=== PATIENT | female | born 2000 | race Two or more races ===

== ENCOUNTER 2024-09-03 12:31 | Observation (INO) | payer BC, MEDICAID, SELFPAY ==
[2024-09-03 12:39] VITALS: BMI 35.3
[2024-09-03 12:51] VITALS: BP 117/69; PULSE 100
== END 2024-09-03 13:28 | disposition home or self-care (01) ==
PROVIDERS: Admitting Provider Student in an Organized Health Care Education/Training Program; PCP Family Medicine; Visit Provider Student in an Organized Health Care Education/Training Program
DX: O47.03 False labor before 37 completed weeks of gestation, third trimester (principal); Z3A.35 35 weeks gestation of pregnancy
CPT/HCPCS: 59025; 59899

== ENCOUNTER 2024-09-12 16:07 | Observation (INO) | payer BC, MEDICAID, SELFPAY ==
[2024-09-12 16:09] VITALS: BMI 36.3
[2024-09-12 16:13] VITALS: BP 124/85; PULSE 115
[2024-09-12] MEDS: hydrOXYzine HCL 25 MG TABLET PO (16:45)
== END 2024-09-12 16:55 | disposition home or self-care (01) ==
PROVIDERS: Admitting Provider Obstetrics & Gynecology; Visit Provider Obstetrics & Gynecology
DX: O47.03 False labor before 37 completed weeks of gestation, third trimester (principal); Z3A.36 36 weeks gestation of pregnancy
CPT/HCPCS: 59025; 59899; A9270

== ENCOUNTER 2024-09-17 21:10 | Observation (INO) | payer BC, MEDICAID, SELFPAY ==
[2024-09-17 21:23] VITALS: BP 99/64; PULSE 110
[2024-09-17 21:27] VITALS: BMI 37.0
--- NOTE | 2024-09-17 21:47 | XR_ITS ---
Examination: Complete OB ultrasound greater than 14 weeks Date and time of exam: September 17, 2024 1113 hrs. Indications: Pelvic contractions beginning 3 weeks ago Findings: Viable intrauterine single fetus with single amniotic sac presentation cephalic Cardiac motion 160 BPM Placenta anterior grade 3 Umbilical cord insertion seen Amniotic fluid index 14.5 cm Ovaries obscured by bowel gas. Composite estimated gestational age based on BPD, head circumference, abdominal circumference, femur length is 37 weeks 0 days Estimated weight 3098.9 g. Survey of intracranial anatomy, spinal anatomy, abdominal anatomy, four-chamber heart performed with no abnormalities identified. Impression: Viable intrauterine gestation cephalic presentation.
--- NOTE | 2024-09-17 21:47 | XR_ITS ---
Examination: Biophysical profile, ultrasound Date and time of exam: September 17, 2024 1130 hrs. Indications: Pelvic contractions beginning 3 weeks ago Technique: Multiple transabdominal sonographic images of the pelvis abdomen obtained. Attention is directed to the breathing movement, gross body movement, amniotic fluid volume and tone. Findings: Amniotic fluid index 13.8 cm Total biophysical profile is 8 of 8. breathing movement is 2. Gross body movement is 2. tone is 2. Qualitative amniotic fluid volume is 2 Impression: Biophysical profile is 8 of 8.
[2024-09-17 23:45] VITALS: BP 130/77; PULSE 96
[2024-09-18 00:53] VITALS: BP 119/80; PULSE 86
--- NOTE | 2024-09-18 01:12 | PRELIM_ITS ---
Obstetric ultrasound (limited) with Doppler. September 17, 2024 2330 hoursClinical history: HX: SAB, u nable to determine presentationComparison: None.Findings:There is a gravid uterus with a live fetus. cardiac activity is present at a heart rate of 141 beats per minute. The placenta is anterior in location. There is no evidence of placenta previa or retroplacental hemorrhage. Amniotic fluid is adequate (ARUN = 13.8 cm). No abnormalities by Doppler.Biophysical Profile:Breathing : 2Tone : 2Amni otic fluid : 2Movement : 2BPP Score: 8/8Impression:Gravid uterus with a single live fetus.Normal feta l biophysical profile as recorded by the ct mri technologist. Report Electronically Signed By: Cleo Wyatt 09/18/2024 1:12:23 AM [EST]
--- NOTE | 2024-09-18 01:24 | PRELIM_ITS ---
Obstetric ultrasound with Doppler. September 17, 2024 2313 hours Clinical history: HX: SAB, Unable to determine presentation Comparison: None.Findings:There is a gravid uterus with a live fetus in cephal ic presentation of mean gestational age 37 weeks and 0 day (by biometry). cardiac activit y is present at a heart rate of 160 beats per minute. The placenta is anterior in location, maturity grade 3. There is no evidence of placenta previa or retroplacental hemorrhage. Amniotic fluid is adeq uate (ARUN = 14.5 cm). Estimated weight is 3099 grams+/- 459 grams. No abnormalities detected by Doppler.Impression:Gravid uterus with a single live fetus in cephalic presentation of mean gestation al age 37 weeks 0 day. Report Electronically Signed By: Christopher Wyatt 09/18/2024 1:23:29 AM [EST]
[2024-09-18 01:35] VITALS: BP 132/79; PULSE 102
== END 2024-09-18 02:10 | disposition home or self-care (01) ==
PROVIDERS: Admitting Provider Obstetrics & Gynecology; Visit Provider Obstetrics & Gynecology
DX: O47.1 False labor at or after 37 completed weeks of gestation (principal); Z3A.37 37 weeks gestation of pregnancy
CPT/HCPCS: 59025; 59899; 76805; 76819

== ENCOUNTER 2024-09-18 03:27 | Inpatient (IN) | payer BC, MEDICAID, SELFPAY ==
[2024-09-18] VITALS (14 sets, daily range): BP systolic 109–146; BP diastolic 72–92; PULSE 80–126; RESP 16–18; TEMP 36.7–36.8; O2SAT 97–100
[2024-09-18] MEDS: RINGERS LACTATED 1000 ML 1,000 ML 100 ML IV (04:02)
[2024-09-18] MEDS: Ampicillin Inj 2,000 MG in SODIUM CHLORIDE 0.9% (P) 100 ML 200 MG IV (04:02)
[2024-09-18] MEDS: OXYTOCIN INJ 10 UNIT/ML VIAL IM (04:15)
[2024-09-18] MEDS: OXYTOCIN in NS 20 units 20 UNIT/1,000 ML BAG 125 UNIT IV (04:15)
[2024-09-18] MEDS: fentaNYL CIT INJ 50 mCg/ML AMP 2ML 100 MCG IV (04:16)
[2024-09-18] MEDS: LIDOCAINE HCL 1% 20 ML VIAL INFL (04:26)
--- NOTE | 2024-09-18 04:29 | PD.EDADDENDU ---
Emergency Room Addendum Addendum Narrative: Note 0400: Called to OB floor for impending delivery. OB provider and route. 23 yo Full term DATE OF DELIVERY: 09/18/2024 0407: Spontaneous delivery of intact placenta, 3 vessel cord. Baby delivered after 1 push by the mother. Bulb suction of mouth and nose @delivery. Cord removed from around neck. Delivered onto mom?s abdomen. The cord was clamped x2 and cut. Baby was handed to the nurse. See nurses notes for Apgars score were -, -, -. (please see nurses notes).Negative meconium. 0412: Placenta delivered spontaneously intact with 3-vessel cord . Estimated blood loss of 350 mL. Pitocin IM per nursing staff. TYPE OF DELIVERY: Normal spontaneous vaginal delivery of viable male. Infant given O2 with minimal retractions, taken to NICU, Dr. Pizarro made aware.
--- NOTE | 2024-09-18 04:56 | ESHP_ITS ---
Documentation for date of: 09/18/24 OB Labor/Induct. HPI History of Present Illness Chief complaint: labor : 9 Para: 2 Term pregnancies: 2 pregnancies: 0 Living children: 2 History of Abortions: Spontaneous and Elective: 6 History of Vaginal deliveries: 2 History of sections: No History of : No Date of last menstrual period: 01/02/24 TREY: 10/07/24 Gestational Age (weeks): 37 Gestational Age (days): 2 Gestational age based on last menstrual period: 37 History of present illness: This is a 23-year-old 9 para 2 admit to labor and delivery for complaints of labor since 3 in the morning. Patient followed at [facility] for care. First visit was at 4 weeks. 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 And she was treated with vaginal progesterone for the first 3 months of her . Last period January 01, 2000 224. Estimated due date October 07, 2024. Patient has a history of marijuana use with the . She has a history of asthma she uses an inhaler and she also has a pressure history of PTSD anxiety and depression. She has had no surgeries. She is B+, antibody screen negative, RPR nonreactive, rubella immune, hepatitis B-, HIV negative, hep C negative, 1 hour GTT was not done and GBS was not done. History of Present Dating criteria: LMP confirmed by 1st trimester US Adequate Care: Yes Ultrasounds: normal 1st trimester US and normal mid trimester US Obstetrical complications: other (frequent SAB) Medical complications: respiratory (asthma, MDI) Review of Systems Review of Systems Systems Reviewed: All systems reviewed, normal except as documented Past Medical History Surgical History SURGICAL: Negative Section Meds Home Medications and Allergies Home Medications ?Medication ?Instructions ?Recorded ?Confirmed ?Type vitamin no.[id number] 1 cap PO QDAY 07/07/24 09/18/24 History 27 mg iron-1 mg-200 mg capsule Allergies Allergy/AdvReac Type Severity Reaction Status Date / Time No Known Allergies Allergy Verified 09/18/24 03:52 OB Exam Physical Exam Vital signs: Pulse Resp BP Pulse Ox 112 H 18 126/79 100 09/18/24 04:54 09/18/24 03:43 09/18/24 04:54 09/18/24 03:43 Narrative: Alert and oriented. Normal heart rate and rhythm. Lungs are clear. Gravid abdomen. Gynecoid pelvis. Estimated weight 6 pounds. Vaginal exam on admission was 80%, 4. -2. Vertex. heart rate category 1 with accelerations and moderate variability bag water was intact Detailed Labor and Delivery Exam Dilation (cm): 4-5 Effacement (%): 80 Cervix position: mid station: -2 Consistency: soft Presentation: Vertex Cervical ripeness score: 8 Membranes: intact Baseline heart rate: 125 monitor accelerations: 15x15 monitor decelerations: None prison variability: Moderate (11-25) Contraction frequency (min): 3-4 Contraction duration (sec): 30 Tachysystole: No Contraction intensity: Moderate OB Results Impressions Impression: labor OB Assessment & Plan Additional Plan Induction method: none Plan: anticipate NVD, GBS prophylaxis tx and consult MD montgomery
--- NOTE | 2024-09-18 05:13 | PD.LDDELS ---
Data (Mcdonald) Data Hx Section: No Para: 1 Delivery Data (Mcdonald) Labor Data Stimulated/Augmented: No Induction: No ROM Date: 09/18/24 ROM Time: 03:45 Rupture Type: SROM Amniotic Fluid: Clear Delivery Data EDC: 10/07/24 EDC calculated by:: LMP/early US confirmation Labor Onset Stage 1 Date: 09/18/24 Labor Onset Stage 1 Time: 03:27 Labor Onset Stage 2 Date: 09/18/24 Labor Onset Stage 2 Time: 04:07 Delivery Date: 09/18/24 Delivery Time: 04:07 Gestational age (weeks): 37 Gestational age (days): 2 Placenta Delivery Date: 09/18/24 Placenta Delivery Time: 04:12 Delivered by: Obix, Delivery nurse: Soumya Gutierrez Other staff at delivery: Nursery Nurse Other staff at delivery: RT Other staff at delivery: Joanne Jon Other staff at delivery: nany RT Delivery Method Delivery: Vaginal Delivery Type: Spontaneous (ER MD in attendance for precipt delivery) Presentation: Vertex Position: OA Anesthesia Type Primary Anesthesia: None Delivery Room Medications Intrapartum Medications: Antibiotics Other Intrapartum Medications: No Post Delivery Medications: Narcotics and Tocolytics Placenta Placenta Delivery: Spontaneous (placenta delivered intact) Placenta Cultures Obtained: No Placenta Sent for Examination: No Episiotomy Episiotomy: None Lacerations #1: Perineal: 1st degree Perineal repair Sutures used for repair: 3.0 Chromic EBL Estimated blood loss (ml): 300 Umbilical Cord Umbilical Vessels: 3 Nuchal Cord: x1 Body Cord: Not Applicable Data (Mcdonald) [place] Data Infant Gender: Male Infant Weight Grams: 2790 1 Minute Total: 7 5 Minute Total: 8 10 Minute Total: 8
[2024-09-18 05:30] LABS: Basophils # (Auto) 0.1 Thou/mm3 (0.0-0.2); Basophils % (Auto) 0 % (0-2.5); Eosinophils # (Auto) 0.1 Thou/mm3 (0.0-0.5); Eosinophils % (Auto) 1 % (0-10); Hematocrit 34.8 % (36.0-46.0); Hemoglobin 11.7 g/dL (12.0-16.0); Immature Granulocytes % (Auto) 1 % (0-0); Lymphocytes % (Auto) 22 % (10-50); Mean Corpuscular HGB Conc 33.6 g/dl (31.0-37.0); Mean Corpuscular Volume 80 fL (80-100); Monocytes % (Auto) 6 % (0-12); Neutrophils # (Auto) 12.5 Thou/mm3 (1.8-7.7); Neutrophils % (Auto) 71 % (37-80); Nucleated Red Blood Cell % 0 /100 WBC (0); Platelet Count 346 Thou/mm3 (140-440); RDW Standard Deviation 40.8 fL (36.4-46.3); Red Blood Count 4.34 Miln/mm3 (4.00-5.20); White Blood Count 17.7 Thou/mm3 (3.6-11.0)
[2024-09-18 06:18] LABS: Syphilis Nonreactive (Nonreactive)
[2024-09-18] MEDS: DOCUSATE SOD 100 MG CAPSULE PO ×2 (08:00→20:50)
[2024-09-18 09:54] LABS: Amphetamine/Metham Scrn,Ur OB Negative (Negative); Benzoylecgonine Screen, Ur OB Negative (Negative); Opiate Screen,Urine OB Negative (Negative); THC Screen,Urine OB Negative (Negative)
--- NOTE | 2024-09-18 10:01 | PC.SS ---
POLICE LIEUTENANT PATROL conducted bedside contact with the patient to address nursing referral indicating patient possessed history of anxiety, depression and PTSD. POLICE LIEUTENANT PATROL introduced self, role and basis of contact. Patient confirmed history of mood disorder. Patient informed POLICE LIEUTENANT PATROL currently participating with individual counseling. Patient is not prescribed psychotropic medication. Mood disorder not impairing with daily functioning. Patient denies history of psychotropic medication. Patient denies engaging in self-harm behaviors. Patient denies current intent/plan of SI/HI. , Anthony; is the patient?s third child. Ages of other children are 2 and 1.5 years old. Patient resides with [facility], Franko Vyas; and children. Patient denies history of alcohol and drugs. Patient denies history of CWS intervention. Patient is aligned with WIC, SNAP and TANF. Miller delivered naturally. Dr. Stubbs was OB. Patient states consistency with OB appointments. Patient plans on . Patient has access to appropriate supplies and equipment. FOB will provide transportation upon discharge. Patient describes possessing support system consisting of spouse and extended family. POLICE LIEUTENANT PATROL provided patient with information to community resources. No further intervention required at this time, social media strategist will be available to address any further concerns. POL[employer] LIEUT[employer]NT PATROL updated bedside nurse.
[2024-09-18 12:37] LABS: Basophils % (Auto) 0 % (0-2.5); Eosinophils % (Auto) 0 % (0-10); Hematocrit 32.1 % (36.0-46.0); Hemoglobin 10.5 g/dL (12.0-16.0); Immature Granulocytes % (Auto) 1 % (0-0); Immature Granulocytes Auto 0.11 Thou/mm3 (0.00-0.00); Lymphocytes # (Auto) 2.9 Thou/mm3 (1.0-4.8); Lymphocytes % (Auto) 14 % (10-50); Mean Corpuscular HGB Conc 32.7 g/dl (31.0-37.0); Mean Corpuscular Hemoglobin 26.4 pg (25.0-35.0); Mean Corpuscular Volume 81 fL (80-100); Monocytes # (Auto) 0.6 Thou/mm3 (0.0-0.8); Monocytes % (Auto) 3 % (0-12); Neutrophils # (Auto) 16.3 Thou/mm3 (1.8-7.7); Neutrophils % (Auto) 82 % (37-80); Nucleated Red Blood Cell % 0 /100 WBC (0); Platelet Count 310 Thou/mm3 (140-440); RDW Standard Deviation 40.3 fL (36.4-46.3); Red Blood Count 3.97 Miln/mm3 (4.00-5.20); White Blood Count 19.9 Thou/mm3 (3.6-11.0)
[2024-09-18] MEDS: IBUPROFEN TAB 400 MG TABLET 800 MG PO ×2 (14:08→23:58)
[2024-09-18] MEDS: ACETAMINOPHEN 325 MG TABLET 650 MG PO (20:49)
[2024-09-19 00:30] VITALS: BP 115/75; PULSE 90; RESP 16; TEMP 36.7; O2SAT 99
[2024-09-19] MEDS: ACETAMINOPHEN 325 MG TABLET 650 MG PO (04:16)
[2024-09-19] MEDS: HYDROcodone/APAP 5/325 TABLET 1 TAB PO (05:13)
[2024-09-19 08:15] VITALS: BP 113/77; PULSE 94; RESP 16; TEMP 36.6; O2SAT 96
[2024-09-19] MEDS: DOCUSATE SOD 100 MG CAPSULE PO (08:41)
--- NOTE | 2024-09-19 09:34 | PD.LDPPPRG ---
Subjective Subjective Interval history: No complaints of pain. No dizziness. Bonding. Breast-feeding Exam Vital Signs Temp Pulse Resp BP Pulse Ox O2 Del Method 98.1 F 90 16 115/75 99 Room Air 09/19/24 00:30 09/19/24 00:30 09/19/24 00:30 09/19/24 00:30 09/19/24 00:30 09/19/24 00:30 Narrative Exam Vital signs stable afebrile. Breasts are soft. Fundus firm below the umbilicus. Perineum intact no swelling. Small lochia. Uterus well involuted. negative homans, no phlebitis,no redness Objective Labs 09/18/24 12:02 Labs: Laboratory Results - last 24 hr 09/18/24 09/18/24 09:24 12:02 WBC 19.9 H RBC 3.97 L Hgb 10.5 L Hct 32.1 L MCV 81 MCH 26.4 MCHC 32.7 RDW Std Deviation 40.3 Plt Count 310 D Neut % (Auto) 82 H Lymph % (Auto) 14 [place] % (Auto) 3 Eos % (Auto) 0 Baso % (Auto) 0 Neut # (Auto) 16.3 H Lymph # (Auto) 2.9 [place] # (Auto) 0.6 Eos # (Auto) 0.0 Baso # (Auto) 0.0 Immature Gran # (Auto) 0.11 H Absolute Nucleated RBC 0.00 Immature Gran % 1 H Nucleated RBC % 0 Urine Opiates Screen Negative U Amphetamin/Meth Scrn Negative U Cocaine Metab Screen Negative U Marijuana (THC) Screen Negative Assessment & Plan Assessment Comment Assessment comment: 24 hr pp Plan Comment Plan Comment: Discharge home with baby. Continue vitamins and iron. Tylenol ibuprofen for pain. Danger signs. Return in 3 weeks visit. Discussed comfort measures for small first-degree laceration. Discussed ER precautions and parameters. Discussed signs symptoms of infection. Time Spent With Patient Time: Total time spent is greater than 50% in coordination of care (as documented) at patient's floor/unit and/or counseling patient:
--- NOTE | 2024-09-19 09:36 | PD.LDDS ---
DS: Providers Provider Date of admission: 09/18/24 03:43 Primary care physician: Rory Altamirano MD Admitting Provider: Rory Altamirano MD Attending Provider on Admission: Rory Altamirano MD Consults: 09/18/24 05:43 Referral Routine Comment: Attending Provider on DC: Kira Barrios CNM Discharging Provider: Kira Barrios CNM DS: Diagnosis Problem List Completed Was Problem List Reviewed/Reconciled?: Yes Summary/Hosp Course Brief History: This is a 23-year-old 9 para 2 admit to labor and delivery for complaints of labor since 3 in the morning. Patient followed at [facility] for care. First visit was at 4 weeks. 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 And she was treated with vaginal progesterone for the first 3 months of her . Last period January 01, 2000 224. Estimated due date October 07, 2024. Patient has a history of marijuana use with the . She has a history of asthma she uses an inhaler and she also has a pressure history of PTSD anxiety and depression. She has had no surgeries. She is B+, antibody screen negative, RPR nonreactive, rubella immune, hepatitis B-, HIV negative, hep C negative, 1 hour GTT was not done and GBS was not done. Peripartum Data Delivery Method: Normal Vaginal Delivery Episiotomy Description: None Laceration Description: yes (small 1st perineal) Time Spent with Patient Time attestation: Total time spent providing and/or coordinating discharge services: Exam Vital Signs Temp Pulse Resp BP Pulse Ox O2 Del Method 98.1 F 90 16 115/75 99 Room Air 09/19/24 00:30 09/19/24 00:30 09/19/24 00:30 09/19/24 00:30 09/19/24 00:30 09/19/24 00:30 Discharge Plan Plan Patient Disposition: HOME (Self Care) Patient condition on transfer: Stable Prescriptions/Referrals Prescriptions/Med Rec: No Action vit #[id number]-[id number]-dha 27 mg iron-1 mg-200 mg Capsule 1 cap PO QDAY Referrals: Rory Altamirano MD [Primary Care Provider] - Patient/Caregiver Discharge Instructions Meds to Beds: No Discharge Activity: resume usual activities Education Materials: After a Vaginal , Understanding Blues, Nutrition While Print Language: Qatari Activity Restrictions/Additional Instructions: Follow up with OB in 4 weeks for check up. Discharge home with baby. Continue vitamins and iron. Tylenol Tylenol or ibuprofen for pain. Discussed ER precautions and parameters. Discussed danger symptoms and signs and symptoms of infection. Discussed comfort measures for first-degree perineal tear Stand Alone Forms: Nieves Award Info., Patient Portal Info Letter Discharge Order Discharge Orders: Discharge (Routine); Ordered 09/19/24 Ordered By: Kira Barrios Planned Discharge Date 09/19/24
--- NOTE | 2024-09-19 11:35 | PC.LAC ---
Mom stated that she was doing well with and has previous experience. States nursed her previous children up to one year. Is not having any pain on latch and did do skin to skin. Does not need help at this time.
== END 2024-09-19 11:08 | disposition home or self-care (01) | DRG 807 ==
LOC: S4SX 04:24 → S4NX 06:29 → S4SX 09-19 05:11 → S4NX 09-19 07:29 → S4SX 10-12 08:32 → S4NX 10-12 08:32
PROVIDERS: Advanced Practice Midwife; Admitting Provider Obstetrics & Gynecology; PCP Obstetrics & Gynecology; Visit Provider Obstetrics & Gynecology
DX: O99.52 Diseases of the respiratory system complicating childbirth (principal); Z37.0 Single live birth; O99.344 Other mental disorders complicating childbirth; J45.909 Unspecified asthma, uncomplicated; F43.10 Post-traumatic stress disorder, unspecified; Z3A.37 37 weeks gestation of pregnancy; O69.81X0 Labor and delivery complicated by cord around neck, without compression, not applicable or unspecified; O70.0 First degree perineal laceration during delivery
CPT/HCPCS: 36415; 59409; 80307; 85025; 86780; 86850; 86900; 86901; J0290; J2590; J3010; J3490; J7120; A9270

== ENCOUNTER 2025-09-09 03:38 | Emergency (ER) | payer MEDICAID, SELFPAY ==
[2025-09-09 03:39] VITALS: BMI 29.2
[2025-09-09 03:45] VITALS: BP 134/88; PULSE 120; RESP 17; TEMP 36.3; O2SAT 98
--- NOTE | 2025-09-09 03:47 | XR_ITS ---
Examination: Complete OB ultrasound, less than 14 weeks, transabdominal Date and time of exam: September 09, 2025, 0405 hours INDICATIONS: Vaginal bleeding beginning 5 days ago Technique: Obstetrical ultrasound images less than 14 weeks performed via transabdominal imaging Findings: Uterus 9.3 cm endometrial stripe 0.6 cm No uterine mass or intrauterine gestation Right ovary 3.5 cm arterial flow Left ovary 2.9 cm arterial flow 12 mm 20 mm follicular cysts No fluid in the cul-de-sac IMPRESSION: No uterine mass or intrauterine gestation, negative for retained products of conception
[2025-09-09 04:06] LABS: Basophils # (Auto) 0.1 Thou/mm3 (0.0-0.2); Basophils % (Auto) 1 % (0-2.5); Eosinophils # (Auto) 0.1 Thou/mm3 (0.0-0.5); Eosinophils % (Auto) 1 % (0-10); Hematocrit 43.5 % (36.0-46.0); Hemoglobin 14.2 g/dL (12.0-16.0); Immature Granulocytes Auto 0.03 Thou/mm3 (0.00-0.00); Lymphocytes # (Auto) 2.0 Thou/mm3 (1.0-4.8); Lymphocytes % (Auto) 19 % (10-50); Mean Corpuscular HGB Conc 32.6 g/dl (31.0-37.0); Mean Corpuscular Hemoglobin 28.1 pg (25.0-35.0); Mean Corpuscular Volume 86 fL (80-100); Monocytes # (Auto) 0.7 Thou/mm3 (0.0-0.8); Monocytes % (Auto) 6 % (0-12); Neutrophils # (Auto) 7.7 Thou/mm3 (1.8-7.7); Neutrophils % (Auto) 73 % (37-80); Nucleated Red Blood Cell # 0.00 Thou/mm3 (0.00-0.00); Nucleated Red Blood Cell % 0 /100 WBC (0); Platelet Count 320 Thou/mm3 (140-440); RDW Standard Deviation 43.4 fL (36.4-46.3); Red Blood Count 5.05 Miln/mm3 (4.00-5.20); White Blood Count 10.5 Thou/mm3 (3.6-11.0)
--- NOTE | 2025-09-09 04:11 | PD.EDVAGBL ---
ED OB Contraction Preg RMI/HPI General Chief complaint: Vaginal Bleeding Stated complaint: SPOTTING, 8 WEEKS Time Seen by Provider: 09/09/25 03:54 Arrival date/time: 09/09/25 03:38 RME / HPI RME / HPI Narrative: See MDM for Dr. Carrillo's HPI Documentation. Related Data Home Medications ?Medication ?Instructions ?Recorded ?Confirmed vitamins 1 cap PO QDAY 07/07/24 09/18/24 no.[id number]-dha 27 mg iron-1 mg-200 mg capsule Allergies Allergy/AdvReac Type Severity Reaction Status Date / Time No Known Allergies Allergy Verified 09/18/24 03:52 Review of Systems Review of Systems Systems Reviewed: All systems reviewed, normal except as documented Past Medical History Past Medical History NEUROLOGIC: Positive Neurological Disorders and Migraine RESPIRATORY: Positive Asthma GENITOURINARY: Positive Genitourinary Disorders REPRODUCTIVE: Positive Previous Pregnancies PSYCHO/SOCIAL: Positive Depression, Anxiety and Post Traumatic Stress Disorder OTHER HISTORY: Positive Hospitalization Family History FAMILY HISTORY: Positive Family Psychiatric Problems and Family Cardiac Disorders (Mom with h/o heart attack) ED Exam Narrative Physical exam: See MDM for Dr. Carrillo's Physical Exam Documentation. Course Quality Measures none Orders Category Date Time Status Saline [Insert IV] NOW Care 09/09/25 03:47 Completed US OB <= 14 weeks fetus Stat Exams 09/09/25 03:47 Taken Beta HCG,Quantitative Stat Lab 09/09/25 03:59 Completed Bilirubin,Direct Stat Lab 09/09/25 03:59 Completed CBC Stat Lab 09/09/25 03:59 Completed CMP [Comprehensive Metabolic Panel] Stat Lab 09/09/25 03:59 Completed Magnesium Stat Lab 09/09/25 03:59 Completed Rh Testing Only Stat Lab 09/09/25 03:59 Completed TSH [Thyroid Stimulating Hormone] Stat Lab 09/09/25 03:59 Completed UA, C/S IF [Urinalysis, C/S if Indicated] Stat Lab 09/09/25 04:20 Completed Acetaminophen Ivpb [Ofirmev Inj] Med 09/09/25 03:47 Discontinued 1,000 mg in 100 ml IV X1 Ondansetron Inj [Zofran Inj] Med 09/09/25 03:47 Discontinued 4 mg IVP X1 ONE POTASSIUM CHL 10% Liq 15 ML Med 09/09/25 04:46 Discontinued 40 meq PO X1 ONE Sodium Chloride 0.9% 1000 ml [Ns] 1,000 ml Med 09/09/25 03:47 Discontinued IV 999 mls/hr Vital Signs Vital signs: Vital Signs Temperature 97.4 F 09/09/25 03:45 Pulse Rate 120 H 09/09/25 03:45 Respiratory Rate 17 09/09/25 03:45 Blood Pressure 134/88 H 09/09/25 03:45 Pulse Oximetry (%) 98 09/09/25 03:45 Oxygen Delivery Method Room Air 09/09/25 03:45 Vaginal Bleeding MDM Narrative MDM Narrative: This section includes all my notes and documentations, including HPI, PE, and ED course. Basilio Carrillo MD HPI: 24 y/o female (~2 months) with about a week history of cramping and bleeding. Had large amount of bleeding a few days ago. Currently spotting. Some nausea, no vomiting. No other complaints. ROS: All negative except as documented in HPI. Physical Exam: General: Alert and oriented. No acute distress when remaining still. Eyes: Conjunctivae and lids clear. ENT: No nasal congestion. Neck: Supple. Heart: RRR. Lungs: No respiratory distress. Good air movement. No rhonchi, wheezing, rales. Abdomen: Soft and nontender. Normal bowel sounds. No distension. No rebound or guarding. Back: No CVA tenderness. Skin: Warm and dry. Neuro: Alert and oriented X 3. I reviewed all diagnostic test results: My review of the OB US report is no IUP. Blood tests and urine tests remarkable for negative beta-hCG. At this point, diagnoses include: Miscarriage Treatment here included: IVF Zofran 4 mg IV Tylenol 1000 mg IV She felt much better. Recommended expectant management. Based on my best medical judgment, made decision no further evaluation or treatment indicated at this time. Patient understands and agrees to the discharge instructions customized and printed, see below. Discharge Instructions from Dr. Carrillo printed for you: 1. After evaluation, you had a miscarriage. 2. Your uterus is empty. 3. Your blood test is negative. 4. We are extremely sorry. 5. No sexual activity until cleared by a doctor taking care of you. 6. See a private doctor on 09/11/2025 for recheck and further care. Ask to review all test results and official radiology reports, to make sure you receive all necessary follow-ups and monitoring. 7. Seek immediate medical care with intolerable pain, extremely heavy vaginal bleeding (soaking more than 3 pads per hour), or with any concerns. Basilio Carrillo MD Patient data External records reviewed:: [facility] previous records (Reviewed prior ED records from 09/18/24. Patient was seen for Diseases of the respiratory system complicating childbirth.) Clinical information provided by:: patient Social determinants that could affect healthcare access:: none Patient has the following chronic illnesses:: Migraine, Asthma, Depression, Anxiety and Post Traumatic Stress Disorder How is presenting disease/condition affected by chronic disease/condition?: uneffected by Evaluation data The following diagnostics were reviewed and interpreted by me:: lab results and radiology exam(s) Lab and/or radiology exams considered but not ordered:: None Interpretation Summary: I reviewed all diagnostic test results: My review of the OB US report is no IUP. Blood tests and urine tests remarkable for negative beta-hCG. Medications / Prescriptions Medications or Prescriptions considered but not ordered:: None Medication administrations:: Medication Administration History Discontinued Medications Acetaminophen (Ofirmev Inj) 1,000 mg in 100 mls @ 250 mls/hr IV X1 ONE Stop: 09/09/25 04:10 Last Infusion: 09/09/25 04:52 Dose: Infused Documented By: Admin: 09/09/25 04:19 Dose: 250 mls/hr Documented By: AMAURY Sodium Chloride (Ns) 1,000 mls @ 999 mls/hr IV .Q1H1M ONE Stop: 09/09/25 04:47 Last Admin: 09/09/25 04:38 Dose: 999 mls/hr Documented By: AMAURY Ondansetron HCl (Ondansetron Inj 2 Mg/Ml Inj 2 Ml) 4 mg IVP X1 ONE; Protocol Stop: 09/09/25 03:48 Last Admin: 09/09/25 04:38 Dose: 4 mg Documented By: AMAURY Potassium Chloride (Potassium Chloride 10% 20 Meq/15 Ml Udc) 40 meq PO X1 ONE Stop: 09/09/25 04:47 Last Admin: 09/09/25 04:56 Dose: Not Given Documented By: BR Non-Admin Reason: Patient Refused Treatment here included: IVF Zofran 4 mg IV Tylenol 1000 mg IV Consultations Consultation(s) initiated? (list below): No Diagnosis Vaginal Bleeding Differential Diagnosis: missed , threatened , incomplete , ectopic without intrauterine and vaginal bleeding Most likely diagnosis given after review of the tests above:: Complete miscarriage Admission Indicated Admission indicated?: not indicated Explain why admission is indicated or not indicated:: With no condition needing emergent intervention, there was no indication for admission. Admission Request Was there a request for admission?: No Disposition Plan Disposition Plan: Discharge Discharge Attestation Discharge Attestation: The patient and all family members were given an opportunity to ask questions and understood the discharge instructions. Discharge instructions specifically effects, indications for sooner follow up or return to the emergency department, and the expected course of current diagnosis. Patient condition: Stable Discharge Plan Plan Patient Disposition: HOME (Self Care) Prescriptions/Referrals Prescriptions/Med Rec: No Action vit no.[id number]-IA-dha 27 mg iron-1 mg-200 mg Capsule 1 cap PO QDAY Problem List Clinical Impression: Miscarriage Patient/Caregiver Discharge Instructions Discharge Activity: activity as tolerated Education Materials: ED MISCARRIAGE Completed Additional Instructions: Discharge Instructions from Dr. Carrillo printed for you: 1. After evaluation, you had a miscarriage. 2. Your uterus is empty. 3. Your blood test is negative. 4. We are extremely sorry. 5. No sexual activity until cleared by a doctor taking care of you. 6. See a private doctor on 09/11/2025 for recheck and further care. Ask to review all test results and official radiology reports, to make sure you receive all necessary follow-ups and monitoring. 7. Seek immediate medical care with intolerable pain, extremely heavy vaginal bleeding (soaking more than 3 pads per hour), or with any concerns. Print Language: Belizean
[2025-09-09] MEDS: ACETAMINOPHEN IVPB 1,000 MG/100 ML VIAL 250 MG IV (04:19)
[2025-09-09 04:25] LABS: Collection Type, Urine Clean Catch
[2025-09-09 04:25] LABS: Alanine Aminotransferase 10 U/L (10-49); Albumin, Serum 5.3 gm/dL (3.5-5.0); Albumin/Globulin Ratio 1.8 (1.2-2.2); Alkaline Phosphatase 90 U/L (46-116); Anion Gap 11 (7-16); Aspartate Amino Transferase 17 U/L (0-34); BUN/Creatinine Ratio 17 Ratio (12-20); Beta HCG,Quantitative 1 mIU/mL (<5.0); Bilirubin,Direct 0.4 mg/dL (0.0-0.3); Bilirubin,Total 1.3 mg/dL (0.3-1.2); Blood Urea Nitrogen 12 mg/dL (9-23); Calcium 8.9 mg/dL (8.3-10.6); Calcium (Corrected) 8.9 mg/dL (8.5-10.1); Carbon Dioxide 24.8 mMol/L (20.0-31.0); Chloride 108 mMol/L (98-107); Creatinine (Component) 0.7 mg/dL (0.6-1.3); Estimated Creatinine Clearance 113.6 mL/min (>60); Globulin 3.0 gm/dL (2.3-3.5); Glucose 112 mg/dL (74-106); Magnesium 1.9 mg/dL (1.6-2.6); Osmolality,Calculated 287 (275-295); Potassium 3.3 mMol/L (3.4-5.1); Sodium 144 mMol/L (136-145); Total Protein 8.3 gm/dL (5.7-8.2); eGFR > 60 See Note
[2025-09-09 04:27] LABS: Thyroid Stimulating Hormone 2.36 uIU/mL (0.55-4.78)
[2025-09-09 04:32] LABS: Bacteria,Urine Rare; Bilirubin,Urine Negative (Negative); Blood,Urine Negative (Negative); Clarity,Urine Clear (Clear/Hazy); Color,Urine Yellow (Lt Yel-Yel); Culture Indicated,Urine Not Indicated; Glucose, Urine Negative (Negative); Ketones,Urine Trace (Negative); Leukocyte Esterase,Urine Positive (Negative); Nitrite,Urine Negative (Negative); PH,Urine 6.0 (5.0-7.0); Protein,Urine 1+ (Neg - Trace); RBC,Urine 5 /hpf (0-3); Specific Gravity,Urine 1.039 (1.001-1.035); Squamous Epithelial Cell,Urine 2 /hpf (0-5); Urobilinogen,Urine Negative mg/dL (0.0-1.0); WBC,Urine 8 /hpf (0-5)
[2025-09-09] MEDS: SODIUM CHLORIDE 0.9% 1000 ML 1,000 ML 999 ML IV (04:38)
[2025-09-09] MEDS: ONDANSETRON INJ 2 MG/ML INJ 2 ML 4 MG IVP (04:38)
[2025-09-09 04:43] VITALS: BP 126/81; PULSE 99; RESP 13; TEMP 37.1; O2SAT 98
--- NOTE | 2025-09-09 05:16 | PRELIM_ITS ---
Pelvic ultrasound (transabdominal). September 09, 2025 at 0405 hours Clinical history: Cramping and bleeding (GA 8 weeks). LMP: 07/13/2025. Beta hCG = pending. Technique: Real-time, grayscale, transabdominal pelvic ultrasound was performed using Duplex scanning including arterial inflow, venous outflow, color and spectral Doppler. Comparison: No prior study is available for comparison. Findings: The uterus is anteverted, measuring 9.3 x 3.2 x 5.1 cm. The endometrium is unremarkable and measures 0.6 cm. There is no intrauterine The right ovary measuring 3.5 x 1.5 x 2.2 cm The left ovary measuring 2.9 x 1.7 x 2.6 cm. There are two follicles in the left ovary, measuring 1.2 x 0.7 x 0.8 cm and 2 x 0.6 x 1.2 cm. Both ovaries demonstrate color flow and spectral waveforms on Doppler evaluation. There is no adnexal mass. There is no free fluid on the submitted images. Impression: Limited evaluation. No evidence of intrauterine gestation at this time. Possibilities include very early intrauterine , recent or occult ectopic gestation. Recommend correlation with serum beta hCG and sonographic follow up. Other findings as described above. Report Electronically Signed By: Andrew Fish 09/09/2025 5:14:53 AM [EST]
== END 2025-09-09 04:58 | disposition home or self-care (01) ==
PROVIDERS: Emergency Provider Emergency Medicine
DX: O03.9 Complete or unspecified spontaneous abortion without complication (principal); R11.0 Nausea
CPT/HCPCS: 36415; 76801; 80053; 81001; 82248; 83735; 84443; 84702; 85025; 86901; 96365; 96375; 99284; J0131; J2405; J7030